=== PATIENT | female | born 1960 | race American Indian/Alaskan Native ===

== ENCOUNTER 2016-07-04 23:34 | Emergency (ER) | payer OTHER ==
[2016-07-05 00:38] LABS: BUN/Creatinine Ratio 26.66; Blood Urea Nitrogen 16 mg/dL (7-17); Calcium 8.8 mg/dL (8.4-10.2); Carbon Dioxide 24 mmol/L (22-30); Glucose 83 mg/dL (65-100)
[2016-07-05 00:39] LABS: Basophils % (Auto) 0.4 % (0.0-1.8); Chloride 100.1 mmol/L (98-107); Eosinophils % (Auto) 2.5 % (0.0-4.3); Hematocrit 38.1 % (30.3-42.9); Hemoglobin 12.8 gm/dl (10.1-14.3); Mean Corpuscular HGB Conc 34 % (30-34); Mean Corpuscular Hemoglobin 31 pg (28-32); Mean Corpuscular Volume 92 fl (79-97); Platelet Count 315 K/mm3 (140-440); Potassium 3.2 mmol/L (3.6-5.0); Red Blood Count 4.14 M/mm3 (3.65-5.03); Red Cell Distribution Width 14.1 % (13.2-15.2); Sodium 139 mmol/L (137-145)
[2016-07-05 00:40] LABS: Anion Gap 18 mmol/L
[2016-07-05] MEDS ORDERED: LOPRESSOR PO ONE (01:42)
[2016-07-05] MEDS ORDERED: NAPROSYN PO ONE (01:42)
--- NOTE | 2016-07-05 01:48 | Emergency Department Report ---
ED General Adult HPI - General Chief complaint: High BP Stated complaint: LEG AND HAND PAIN Time Seen by Provider: 07/05/16 01:33 Source: patient Mode of arrival: Ambulatory Limitations: No Limitations - History of Present Illness Initial comments: This is a pleasant female who just moved to the area approximately 2 months ago. She complains of having elevated blood pressure. She states that she was on metoprolol as well as hydrochlorothiazide previously for this but has stopped taking them due to running out of her prescription and not having a refill. She states that she just arrived here in town again a couple of months ago and has not established care with any physician. Complains of joint pains in her right shoulder as well as her left hip. And her hands. 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 She denies any significant repetitive activities but for mopping. She denies any recent falls or any specific trauma. She denies any chest pain or shortness of breath at this time. Onset/Timin -: month(s) Location: upper extremity, lower extremity Radiation: non-radiation Severity scale (0 -10): 3 Quality: aching, dull Worsens with: movement Associated Symptoms: denies: chest pain, cough, nausea/vomiting, shortness of breath Treatments Prior to Arrival: NSAID (improves with ibuprofen) - Related Data Previous Rx's Medication Instructions Recorded Last Taken Type Hydrochlorothiazide [HCTZ] 25 mg PO QDAY #30 tablet 07/05/16 Unknown Rx Metoprolol [Lopressor TAB] 50 mg PO BID #60 tablet 07/05/16 Unknown Rx Naproxen [Naprosyn TAB] 500 mg PO BID #30 tablet 07/05/16 Unknown Rx Allergies Allergy/AdvReac Type Severity Reaction Status Date / Time No Known Allergies Allergy Verified 07/04/16 23:46 ED Review of Systems ROS: Stated complaint: LEG AND HAND PAIN Other details as noted in HPI Constitutional: denies: chills, fever Eyes: denies: eye pain, eye discharge, vision change ENT: denies: ear pain, throat pain Respiratory: denies: cough, shortness of breath, wheezing Cardiovascular: denies: chest pain, palpitations Endocrine: no symptoms reported Gastrointestinal: denies: abdominal pain, nausea, diarrhea Genitourinary: denies: urgency, dysuria, discharge Musculoskeletal: arthralgia. denies: back pain, joint swelling Skin: denies: rash, lesions Neurological: denies: headache, weakness, paresthesias Psychiatric: denies: anxiety, depression Hematological/Lymphatic: denies: easy bleeding, easy bruising ED Past Medical Hx - Past Medical History Previous Medical History?: Yes Hx Hypertension: Yes - Surgical History Past Surgical History?: No - Medications Home Medications: Home Medications Medication Instructions Recorded Confirmed Last Taken Type Hydrochlorothiazide [HCTZ] 25 mg PO QDAY #30 tablet 07/05/16 Unknown Rx Metoprolol [Lopressor TAB] 50 mg PO BID #60 tablet 07/05/16 Unknown Rx Naproxen [Naprosyn TAB] 500 mg PO BID #30 tablet 07/05/16 Unknown Rx ED Physical Exam - General Limitations: No Limitations General appearance: alert, in no apparent distress, obese - Head Head exam: Present: atraumatic, normocephalic - Eye Eye exam: Present: normal appearance - ENT ENT exam: Present: mucous membranes moist - Neck Neck exam: Present: normal inspection - Respiratory Respiratory exam: Present: normal lung sounds bilaterally. Absent: respiratory distress - Cardiovascular Cardiovascular Exam: Present: regular rate, normal rhythm. Absent: systolic murmur, diastolic murmur, rubs, gallop - GI/Abdominal GI/Abdominal exam: Present: soft, normal bowel sounds - Extremities Exam Extremities exam: Present: full ROM, tenderness (R shoulder and L hip with mild tenderness to active and passive ROM. No catch. Excellent strength.), other ( nml gait. Walks on heels and toes. Hands with mild tenderness diffusely and slight edema. No lower extremity edema.) - Back Exam Back exam: Present: normal inspection. Absent: tenderness, CVA tenderness (R) - Neurological Exam Neurological exam: Present: alert, oriented X3 - Psychiatric Psychiatric exam: Present: normal affect, normal mood - Skin Skin exam: Present: warm, dry, intact, normal color. Absent: rash ED Course Vital Signs 07/04/16 23:46 Temperature 98.5 F Pulse Rate 69 Respiratory 20 Rate Blood Pressure 208/105 O2 Sat by Pulse 100 Oximetry - Reevaluation(s) Reevaluation #1: 07/05/16 02:17 Well-appearing in general here blood pressure noted. I am fairly confident this is due to her essential hypertension. We'll initiate therapy tonight. Give prescriptions. Given referrals for continued follow-up as well. Regards to the joint discomforts, I have a low suspicion of septic arthritis or significant pathology. We'll treat for degenerative disease. Encourage her to continue on anti-inflammatory medications in moderation. Safe for home otherwise. ED Medical Decision Making - Lab Data Result diagrams: 07/05/16 00:08 07/05/16 00:08 Critical care attestation.: If time is entered above; I have spent that time in minutes in the direct care of this critically ill patient, excluding procedure time. ED Disposition Clinical Impression: Arthritis Hypertension Qualifiers: Hypertension type: essential hypertension Qualified Code(s): I10 - Essential ( primary) hypertension Disposition: DISCHARGED TO HOME OR SELFCARE Is pt being admited?: No Does the pt Need Aspirin: No Condition: Stable Instructions: Hypertension (ED) Prescriptions: Hydrochlorothiazide [HCTZ] 25 mg PO QDAY #30 tablet Metoprolol [Lopressor TAB] 50 mg PO BID #60 tablet Naproxen [Naprosyn TAB] 500 mg PO BID #30 tablet Referrals: RINKU LYNN MD [Staff Physician] - 3-5 Days [facility] [Provider Group] - 3-5 Days Time of Disposition: 01:44
--- NOTE | 2016-07-05 02:07 | Admit Criteria Form ---
Admission Criteria Documentation: HYPERTENSION Clinical Indications for Admission to Inpatient Care ( Place "X" for any and all applicable criteria): Admission is indicated for ANY ONE of the following(1)(2)(3)(4): [ ]I. Hypertensive emergency, with evidence of acute and progressing target organ disease as indicated by ANY ONE of the following: [ ]a) Hypertensive encephalopathy (eg, confusion, altered mental status) [ ]b) Cerebral infarction [ ]c) Intracranial hemorrhage [ ]d) Myocardial ischemia or infarction [ ]e) Pulmonary edema [ ]f) Aortic dissection [ ]g) Seizure [ ]h) Acute renal insufficiency [ ]i) Papilledema [ ]j) Microangiopathic hemolytic anemia [ ]II. Adrenergic crisis (eg, severe hypertension due to pheochromocytoma crisis, cocaine or amphetamine intoxication, or clonidine withdrawal) [X ]III. Severe hypertension (SBP greater than 180 mmHg or DBP greater than 110 mmHg or greater than the 95th percentile for age, gender, and height in pediatric patients) that cannot be controlled (eg, to SBP less than 160 mmHg and DBP less than 100 mmHg in adults) by treatment with oral medication in emergency department or observation care Extended stay beyond goal length of stay may be needed for(11)(12)(13): [ ]a) Persistent hypertensive encephalopathy [ ]b) Continuation of pulmonary edema [ ]c) Recurring or persistent severe hypertension [ ]d) Target organ damage (eg, angina, stroke, aortic dissection) [ ]e) Associated renal insufficiency The original [employer] content created by [employer] has been revised. The portions of the content which have been revised are identified through the use of italic text or in bold, and [facility] has neither reviewed nor approved the modified material. All other unmodified content is copyright [facility]. Please see references footnoted in the original [facility] edition 2016 Admission Criteria Met: Yes
[2016-07-05 02:15] VITALS: BP 186/89
[2016-07-05 03:26] LABS: Bilirubin,Urine NEG (Negative); Blood,Urine NEG (Negative); Ketones,Urine NEG (Negative); Leukocyte Esterase,Urine NEG (Negative); Nitrite,Urine NEG (Negative); Protein,Urine <15 mg/dL mg/dL (Negative); Urobilinogen,Urine < 2.0 mg/dL (<2.0); WBC,Urine < 1.0 /HPF (0.0-6.0)
== END 2016-07-05 02:18 | disposition home or self-care (01) ==
LOC: ED 23:34
DX: I10 Essential (primary) hypertension (principal); M25.511 Pain in right shoulder; M25.552 Pain in left hip
CPT/HCPCS: 36415; 80048; 81001; 85025; 99283